=== PATIENT | female | born 1940 | race Two or more races ===

== ENCOUNTER 2024-02-27 04:44 | Emergency (ER) | payer OTHER ==
[~2024-02-27] VITALS: Ht 165.1 cm; Wt 71.7 kg
[2024-02-27] MEDS ORDERED: TOPROL XL50 M1 PO (04:55)
[2024-02-27] MEDS ORDERED: ZOCOR20 MG PO (04:56)
[2024-02-27] MEDS ORDERED: NIFEDIPINE 10 MG CAPSULE PO STA (05:19)
== END 2024-02-27 07:47 ==
LOC: ER 04:46
DX: I10 Essential (primary) hypertension (principal)

== ENCOUNTER 2025-03-08 16:43 | Emergency (ER) | payer OTHER ==
[~2025-03-08] VITALS: Ht 165.1 cm; Wt 68.5 kg
[~2025-03-08 16:43] MED LIST: TOPROL XL50 M1 PO; ZOCOR20 MG PO
[2025-03-08] MEDS ORDERED: MORPHINE SULFATE 2 MG/ML SYRINGE IV ONE (17:45)
[2025-03-08] MEDS ORDERED: FAMOtidine 10 MG/ML (4ML VIAL) IV ONE (17:45)
[2025-03-08] MEDS ORDERED: ONDANSETRON HCL 2 MG/ML VIAL IV ONE (17:45)
[2025-03-08] MEDS ORDERED: 0.9 % SODIUM CHLORIDE 1,000 ML IV ONE (17:45)
[2025-03-08 18:35] LABS: BASO % 0.4 % (0.1-1.2); EOS # 0.08 (0.04-0.54); EOS % 0.8 % (0.7-7.0); LYMPH # 0.45 (1.18-3.74); LYMPH % 4.6 % (19.3-53.1); MEAN PLATELET VOLUME 11.60 fl (9.4-12.4); MONO # 0.44 (0.24-0.82); MONO % 4.5 % (4.7-12.5); NEUT # 8.79 (1.56-6.13); NEUT % 89.4 % (34.0-71.1); RED CELL DISTRIBUTION WIDTH 13.4 % (11.6-14.4)
[2025-03-08 19:00] LABS: INR 1.04
[2025-03-08 19:16] LABS: ALT/SGPT 17.0 U/L (12-78); AST/SGOT 17.0 U/L (15-37); BILIRUBIN TOTAL 0.62 mg/dL (0.3-1.2); BUN CREA RATIO 20.0 (7.0-25.0); CREATININE SERUM 0.85 mg/dL (0.55-1.02); GFR 63.72; GLOBULINA 2.9 G/DL (2.4-3.5); GLUCOSE FASTING 146.0 mg/dL (65-100); OSMOLALITY SERUM 285.0 MOSM/KG (275-295)
[2025-03-08 20:20] LABS: URINE APPEARANCE Clear; URINE BILIRRUBIN Negative (NEGATIVE); URINE BLOOD Negative; URINE COLOR Yellow; URINE GLUCOSE Negative (NEGATIVE); URINE KETONE Negative (NEGATIVE); URINE LEUKOCYTE Small; URINE NITRATE Negative; URINE PROTEIN Negative (NEGATIVE); URINE UROBILINOGEN 0.2 E.U./dl
[2025-03-08 20:25] LABS: URINE BACTERIA 176.4 uL (0.0-1933); URINE EPITHELIAL CELLS 6.3 uL (0.0-38.8); URINE RBC 5.2 uL (0.0-20.8); URINE WBC 6.9 uL (0.0-23.2)
[2025-03-08 20:57] LABS: URINE CAST 0.00 uL (0.0-1.40)
[2025-03-08] MEDS ORDERED: METRONIDAZOLE500 MG PO (22:18)
[2025-03-08] MEDS ORDERED: PEPCID AC20 MG PO (22:18)
[2025-03-08] MEDS ORDERED: LEVSIN/SL0.125 MG SL (22:18)
[2025-03-08] MEDS ORDERED: CIPRO500 MG PO (22:18)
== END 2025-03-08 22:34 | disposition home or self-care (01) ==
LOC: ER 16:44
PROVIDERS: General Practice
DX: K57.90 Diverticulosis of intestine, part unspecified, without perforation or abscess without bleeding (principal); R11.10 Vomiting, unspecified; R42 Dizziness and giddiness; R10.9 Unspecified abdominal pain; I10 Essential (primary) hypertension